=== PATIENT | female | born 1985 | race African-American/Black ===

== ENCOUNTER 2020-12-06 12:19 | Emergency (ER) | payer MEDICAID ==
[~2020-12-06] VITALS: Ht 172.7 cm; Wt 93.0 kg
[2020-12-06] MEDS ORDERED: IBUPROFEN 600MG TABLET PO ONE (13:30)
[2020-12-06] MEDS ORDERED: BACITRACIN ZINC OINT UDPKT TOP ONE (13:30)
[2020-12-06] MEDS ORDERED: LIDOCAINE HCL/EPINEPHRINE 1%-EPI 1:100,000 50 ML VIAL INFIL ONE (13:30)
[2020-12-06] MEDS ORDERED: TETANUS, DIPHTHERIA, PERTUSSIS VAC/PF 0.5ML (>7YR OLD) IM ONE (13:30)
[2020-12-06] MEDS: LIDOCAINE HCL/EPINEPHRINE 1%-EPI 1:100,000 20 ML VIAL INFIL NR ×2 (13:45→16:33)
[2020-12-06 15:00] VITALS: BP 125/66
[2020-12-06] MEDS ORDERED: AMOX-424 MT (15:59)
[2020-12-06] MEDS ORDERED: IBUP-2029 PO (15:59)
[2020-12-06] MEDS ORDERED: AMOXICILLIN/POTASSIUM CLAVULANATE 875/125MG TAB PO ONE (16:00)
== END 2020-12-06 16:47 | disposition home or self-care (01) ==
LOC: EDBD 12:19 → ER 12:19
DX: S02.2XXA Fracture of nasal bones, initial encounter for closed fracture (principal); S01.81XA Laceration without foreign body of other part of head, initial encounter; Y08.89XA Assault by other specified means, initial encounter; Y93.9 Activity, unspecified; Y92.9 Unspecified place or not applicable
CPT/HCPCS: 12013; 70486; 81025; 90471; 90715; 99284; J3490

== ENCOUNTER 2020-12-24 12:55 | Emergency (ER) | payer MEDICAID ==
[~2020-12-24] VITALS: Ht 172.7 cm; Wt 80.0 kg
[~2020-12-24 12:55] MED LIST: AMOX-424 MT; IBUP-2029 PO
[2020-12-24 13:08] VITALS: BP 115/88
== END 2020-12-24 14:12 | disposition home or self-care (01) ==
LOC: ER 12:55
DX: Z48.02 Encounter for removal of sutures (principal)
CPT/HCPCS: 99281; Z7610